=== PATIENT | female | born 1980 | race African-American/Black ===

== ENCOUNTER → 2016-04-11 | Outpatient (CLI) | payer OTHER | LOC: ULTRA 13:31 | DX: D25.9 Leiomyoma of uterus, unspecified (principal); N83.202 Unspecified ovarian cyst, left side; R10.2 Pelvic and perineal pain; M54.9 Dorsalgia, unspecified ==

== ENCOUNTER → 2017-02-26 | Outpatient (CLI) | payer OTHER | LOC: RAD 01:32 | DX: Z12.31 Encounter for screening mammogram for malignant neoplasm of breast (principal) ==

== ENCOUNTER → 2018-06-07 | Outpatient (CLI) | payer OTHER | LOC: RAD 00:28 | DX: Z12.31 Encounter for screening mammogram for malignant neoplasm of breast (principal) ==

== ENCOUNTER → 2020-06-15 | Outpatient (CLI) | payer OTHER | LOC: BC 12:22 | PROVIDERS: ATTEND Nurse Practitioner | DX: Z12.31 Encounter for screening mammogram for malignant neoplasm of breast (principal) ==